=== PATIENT | male | born 1990 | race Native Hawaiian/Other Pacific Islander ===

== ENCOUNTER 2019-12-30 14:28 | Emergency (ER) | payer OTHER ==
[~2019-12-30] VITALS: Ht 180.3 cm; Wt 65.8 kg
[2019-12-30 14:32] VITALS: TEMP 99.6
[2019-12-30 15:45] VITALS: BP 132/65
== END 2019-12-30 15:45 | disposition home or self-care (01) ==
LOC: ED 14:28
PROC: 0H92XZZ Drainage of Right Ear Skin, External Approach (ICD-10-PCS; principal; 2019-12-30)
DX: H60.01 Abscess of right external ear (principal)
CPT/HCPCS: 87070; 87077; 87185; 87186; 87205; 99282; 99283